=== PATIENT | male | born 2005 | race Caucasian/White ===

== ENCOUNTER 2024-09-08 18:59 | Emergency (ER) | payer MEDICAID, SELFPAY ==
[2024-09-08 19:00] VITALS: BMI 41.8
[2024-09-08 19:54] VITALS: BP 151/84; PULSE 71; RESP 18; TEMP 37.1; O2SAT 98
--- NOTE | 2024-09-08 20:01 | PD.EDSKIN ---
ED Skin Abcess FB-RME/HPI General Chief complaint: Skin/Abscess/Foreign Body Stated complaint: POSSIBLE ABSCESS TO TAILBONE AREA Time Seen by Provider: 09/08/24 19:52 Arrival date/time: 09/08/24 18:59 RME / HPI RME / HPI narrative: 19-year-old male presents with complaint of cyst to his tailbone area. Patient states it has been intermittent for several years. He recently had an increase in swelling and discomfort with spontaneous drainage from the area. He went to primary care and they prescribed him penicillin, which has not given him much relief or improvement. No fevers. Related Data Previous Rx's ?Medication ?Instructions ?Recorded acetaminophen 650 mg 650 mg PO Q8H PRN fever or pain 06/09/19 tablet,extended release #30 tabs ibuprofen 600 mg tablet 600 mg PO Q8H PRN fever or pain 06/09/19 #30 tabs prednisone 20 mg tablet See Rx Instructions PO QAM #9 tabs 06/09/19 ibuprofen 800 mg tablet 800 mg PO TID PRN pain #30 tabs 11/14/20 pantoprazole 40 mg tablet,delayed 40 mg PO QDAY #14 tabs 03/09/23 release (Protonix) cephalexin 500 mg capsule 500 mg PO QID 7 days #28 caps 09/08/24 sulfamethoxazole 800 1 tab PO BID 7 days #14 tabs 09/08/24 mg-trimethoprim 160 mg tablet (Bactrim DS) Allergies Allergy/AdvReac Type Severity Reaction Status Date / Time No Known Allergies Allergy Verified 09/08/24 19:03 Review of Systems Review of Systems Narrative Review of Systems: Review of systems negative except as outlined in the HPI. ED Exam Narrative Physical exam: Constitutional: no acute distress, age appropriate, non-toxic Eyes: conjunctivae w/o pallor, EOMI HENT: normocephalic, atraumatic. Respiratory Effort: no stridor, effort normal, no tachypnea Skin: warm, dry; at the superior gluteal cleft there is a pilonidal abscess that is spontaneously draining small amount of purulent discharge. No persistent fluctuance Neurology: alert, oriented X 4. Normal gait Psychology: cooperative, normal mood Course Quality Measures none Vital Signs Vital signs: Vital Signs Temperature 98.7 F 09/08/24 19:54 Pulse Rate 71 09/08/24 19:54 Respiratory Rate 18 09/08/24 19:54 Blood Pressure 151/84 H 09/08/24 19:54 Pulse Oximetry (%) 98 09/08/24 19:54 Oxygen Delivery Method Room Air 09/08/24 19:54 Skin / Abscess / Foreign Body MDM Narrative MDM Narrative:: Patient presented with pilonidal abscess. On exam, his abscess is draining. He is on penicillin, but very likely require broader coverage, so I will prescribe Keflex and Bactrim. He is to follow-up with primary care in the next 3 to 5 days to be referred to general surgery. Counseled him to do twice daily warm compresses and take OTC ibuprofen and Tylenol as needed for pain. Return to ED precautions given Patient data External records reviewed:: [facility] previous records Clinical information provided by:: patient Social determinants that could affect healthcare access:: none Patient has the following chronic illnesses:: None How is presenting disease/condition affected by chronic disease/condition?: no chronic disease Evaluation data The following diagnostics were reviewed and interpreted by me:: other (specify) (N/A) Lab and/or radiology exams considered but not ordered:: Considered labs and imaging but not indicated. Interpretation Summary: N/A Medications / Prescriptions Medications or Prescriptions considered but not ordered:: N/A Medication administrations:: N/A Consultations Consultation(s) initiated? (list below): No Diagnosis Skin/Abscess Differential Diagnosis: abscess of skin or subcutaneous tissue, urticaria, cellulitis and contact dermatitis Most likely diagnosis given after review of the tests above:: Pilonidal abscess Admission Indicated Admission indicated?: not indicated Explain why admission is indicated or not indicated:: Patient is stable for outpatient management Admission Request Was there a request for admission?: No Disposition Plan Disposition Plan: Discharge Discharge Attestation Discharge Attestation: The patient and all family members were given an opportunity to ask questions and understood the discharge instructions. Discharge instructions specifically effects, indications for sooner follow up or return to the emergency department, and the expected course of current diagnosis. Patient condition: Stable Discharge Plan Plan Patient Disposition: HOME (Self Care) Prescriptions/Referrals Prescriptions/Med Rec: New sulfamethoxazole-trimethoprim [Bactrim DS] 800-160 mg tablet 1 tab PO BID 7 Days Qty: 14 0RF cephalexin 500 mg capsule 500 mg PO QID 7 Days Qty: 28 0RF No Action acetaminophen 650 mg tablet extended release 650 mg PO Q8H PRN (Reason: fever or pain) Qty: 30 0RF Rx Instructions: swallow whole; do not crush, chew, break, dissolve, cut, or open ibuprofen 600 mg tablet 600 mg PO Q8H PRN (Reason: fever or pain) Qty: 30 0RF Rx Instructions: prn pain / fever prednisone 20 mg tablet See Rx Instructions PO QAM Qty: 9 0RF Rx Instructions: PO QAM; Take 40mg (2 tabs) PO QAM x 3 days, then 20mg (1 tab) PO QAM x 3 days ibuprofen 800 mg tablet 800 mg PO TID PRN (Reason: pain) Qty: 30 0RF pantoprazole [Protonix] 40 mg tablet,delayed release (DR/EC) 40 mg PO QDAY Qty: 14 0RF Problem List Clinical Impression: Pilonidal abscess Patient/Caregiver Discharge Instructions Education Materials: ED Cyst Pilonidal Infec Abx Only Additional Instructions: Follow-up with your PCP in the next 3 to 5 days for referral to general surgery. Take medications as prescribed. Apply warm compresses twice a day for 10 to 15 minutes at a time. Return to the ED for any new or worsening symptoms. Print Language: [place] Island[place] Stand Alone Forms: [employer] Award Info., Patient Portal Info Letter
== END 2024-09-08 20:29 | disposition home or self-care (01) ==
LOC: SERX 20:18
PROVIDERS: Emergency Provider Emergency Medicine; PCP Obstetrics & Gynecology
DX: L05.01 Pilonidal cyst with abscess (principal)
CPT/HCPCS: 99281

== ENCOUNTER 2025-02-06 20:00 | Emergency (ER) | payer MEDICAID, SELFPAY ==
[2025-02-06 20:02] VITALS: BMI 44.6
[2025-02-06 21:23] VITALS: BP 121/69; PULSE 107; RESP 18; TEMP 39.2; O2SAT 96
--- NOTE | 2025-02-06 21:31 | EDNOTE_ITS ---
Upper Respiratory Inf. RME/HPI General Chief Complaint: Flu Like Symptoms Stated Complaint: HEADACHE, BODYACHES, FEVER,COUGH Time Seen by Provider: 02/06/25 21:24 Arrival date/time: 02/06/25 20:00 RME / HPI RME / HPI Narrative: 19-year-old male presents to the ED with a 9-day history of fever, cough, runny nose, nasal congestion, sore throat, body aches, headache, nausea and vomiting (none today), and 1 bout of diarrhea today. Related Data Previous Rx's ?Medication ?Instructions ?Recorded acetaminophen 650 mg 650 mg PO Q8H PRN fever or p ain 06/09/19 tablet,extended release #30 tabs ibuprofen 600 mg tablet 600 mg PO Q8H PRN fever or p ain 06/09/19 #30 tabs prednisone 20 mg tablet See Rx Instructions PO QAM # 9 tabs 06/09/19 ibuprofen 800 mg tablet 800 mg PO TID PRN pain #30 t abs 11/14/20 pantoprazole 40 mg tablet,delayed 40 mg PO QDAY #14 ta bs 03/09/23 release (Protonix) Allergies Allergy/AdvReac Type Severity Reaction Status Date / Time No Known Allergies Allergy Verified 02/06/25 20:01 Review of Systems Review of Systems Systems Reviewed: All systems reviewed, normal except as documented Past Medical History Past Medical History CARDIAC: Negative Cardiac Disorders or Congestive Heart Failure RESPIRATORY: Negative Chronic Obstructive Pulmonary Disease (COPD) or Asthma GENITOURINARY: Negative Renal Disease ENDOCRINE: Negative Diabetes Mellitus Type 1 or Diabetes Mellitus Type 2 HEMATOLOGIC: Negative Sickle Cell Disease Family History FAMILY HISTORY: Positive Family Gastrointestinal Problems Social History SMOKING STATUS: Never smoker ED Exam Narrative Physical exam: Alert and oriented, febrile at 102.6, 19-year-old male, no acute distress. Lungs are clear, mild tachycardia at 107. Abdomen is soft and nontender. Moves all extremities well. TMs and pharynx without erythema, nares pale and boggy, no maxillary sinus tenderness. Neck is supple, normal range of motion, no adenopathy noted. Course Course Course Narrative: COVID, influenza A/B and rapid strep ordered and pending. Quality Measures none Orders Category Date Time Status Bedside COVID-19 Antigen Test NOW Care 02/06/25 20:44 Active Bedside Influenza A&B Antigen Test NOW Care 02/06/25 20:44 Completed XR chest 2V Stat Exams 02/06/25 22:23 Taken Strep A Rapid Stat Lab 02/06/25 21:41 Completed Acetaminophen Tab [Tylenol ES Tab] Med 02/06/25 21:36 Discontinued 1,000 mg PO X1 ONE Ibuprofen Tab [Motrin Tab] Med 02/06/25 21:51 Discontinued 800 mg PO X1 ONE Vital Signs Vital signs: Vital Signs Temperature 102.6 F H 02/06/25 21:23 Pulse Rate 107 H 02/06/25 21:23 Respiratory Rate 18 02/06/25 21:23 Blood Pressure 121/69 02/06/25 21:23 Pulse Oximetry (%) 96 02/06/25 21:23 Oxygen Delivery Method Room Air 02/06/25 21:23 Upper Respiratory Infection Medications / Prescriptions Medication administrations:: Medication Administration History Discontinued Medications Acetaminophen (Acetaminophen 500 Mg Tablet) 1,000 mg PO X1 ONE Stop: 02/06/25 21:37 Last Admin: 02/06/25 21:52 Dose: Not Given Documented By: Non-Admin Reason: Cancelled by Provider Ibuprofen (Ibuprofen Tab 400 Mg Tablet) 800 mg PO X1 ONE Stop: 02/06/25 21:52 Last Admin: 02/06/25 22:00 Dose: 800 mg Documented By: Discharge Plan Prescriptions/Referrals Prescriptions/Med Rec: No Action acetaminophen 650 mg tablet extended release 650 mg PO Q8H PRN (Reason: fever or pain) Qty: 30 0RF Rx Instructions: swallow whole; do not crush, chew, break, dissolve, cut, or open ibuprofen 600 mg tablet 600 mg PO Q8H PRN (Reason: fever or pain) Qty: 30 0RF Rx Instructions: prn pain / fever prednisone 20 mg tablet See Rx Instructions PO QAM Qty: 9 0RF Rx Instructions: PO QAM; Take 40mg (2 tabs) PO QAM x 3 days, then 20mg (1 tab) PO QAM x 3 days ibuprofen 800 mg tablet 800 mg PO TID PRN (Reason: pain) Qty: 30 0RF pantoprazole [Protonix] 40 mg tablet,delayed release (DR/EC) 40 mg PO QDAY Qty: 14 0RF Referrals: Jackie Carrera NP [Primary Care Provider] - In 1 week Patient/Caregiver Discharge Instructions Print Language: Slovenian
--- NOTE | 2025-02-06 21:52 | PC.NURSE ---
PAtient stated he took Tylenol arthritis at 1900 at home equally 1300mg in Tylenol. Provider notified, new order for IBU 800mg POx1 now. Pharmacy aware.
[2025-02-06 22:00] VITALS: TEMP 39.2
[2025-02-06] MEDS: IBUPROFEN TAB 400 MG TABLET 800 MG PO (22:00)
--- NOTE | 2025-02-06 22:23 | XR_ITS ---
Examination: PA lateral chest 2 views TECHNIQUE: Upright PA and lateral chest 2 views Date and time: February 06, 2025 1119 hours INDICATIONS: Coughing fever chest pain beginning 9 days ago. FINDINGS: On the lateral view pneumonia in the posterior basal segment obscuring detail posterior portion right hemidiaphragm Normal heart size The osseous structures are intact IMPRESSION: Pneumonia posterior basal segment right lower lobe
[2025-02-06 22:57] LABS: Strep A Rapid Negative (Negative)
[2025-02-06 23:59] VITALS: TEMP 37.2
[2025-02-07] MEDS: SODIUM CHLORIDE 0.9% 1000 ML 1,000 ML 999 ML IV (00:09)
[2025-02-07 00:20] VITALS: BP 128/83; PULSE 77; RESP 12; TEMP 37.2; O2SAT 97
[2025-02-07 00:37] LABS: Lactate (Lactic Acid) 0.9 mMol/L (0.4-2.0)
[2025-02-07 00:39] LABS: Basophils # (Auto) 0.0 Thou/mm3 (0.0-0.2); Basophils % (Auto) 0 % (0-2.5); Eosinophils # (Auto) 0.0 Thou/mm3 (0.0-0.5); Eosinophils % (Auto) 0 % (0-10); Hematocrit 41.2 % (41.0-53.0); Hemoglobin 14.2 g/dL (13.5-16.0); Immature Granulocytes Auto 0.02 Thou/mm3 (0.00-0.00); Lymphocytes # (Auto) 1.5 Thou/mm3 (1.0-4.8); Lymphocytes % (Auto) 20 % (10-50); Mean Corpuscular HGB Conc 34.5 g/dl (31.0-37.0); Mean Corpuscular Hemoglobin 29.2 pg (25.0-35.0); Mean Corpuscular Volume 85 fL (80-100); Monocytes # (Auto) 0.5 Thou/mm3 (0.0-0.8); Monocytes % (Auto) 7 % (0-12); Neutrophils # (Auto) 5.3 Thou/mm3 (1.8-7.7); Neutrophils % (Auto) 72 % (37-80); Nucleated Red Blood Cell # 0.00 Thou/mm3 (0.00-0.00); Nucleated Red Blood Cell % 0 /100 WBC (0); Platelet Count 202 Thou/mm3 (140-440); RDW Standard Deviation 40.2 fL (35.1-43.9); Red Blood Count 4.86 Miln/mm3 (4.50-5.90); White Blood Count 7.3 Thou/mm3 (4.5-11.0)
[2025-02-07] MEDS: cefTRIAXone/D5w 1gm IV premix 1 GM/50 ML BAG IV (00:40)
[2025-02-07 01:04] LABS: B-Type Natriuretic Peptide < 20 pg/mL (0-100)
[2025-02-07 01:07] LABS: Alanine Aminotransferase 43 U/L (10-49); Albumin, Serum 5.1 gm/dL (3.5-5.0); Albumin/Globulin Ratio 1.8 (1.2-2.2); Alkaline Phosphatase 70 U/L (46-116); Anion Gap 12 (7-16); Aspartate Amino Transferase 77 U/L (0-34); BUN/Creatinine Ratio 8 Ratio (12-20); Bilirubin,Total 0.6 mg/dL (0.3-1.2); Blood Urea Nitrogen 10 mg/dL (9-23); Calcium 9.3 mg/dL (8.3-10.6); Calcium (Corrected) 9.3 mg/dL (8.5-10.1); Carbon Dioxide 26.0 mMol/L (20.0-31.0); Chloride 102 mMol/L (98-107); Creatinine (Component) 1.3 mg/dL (0.6-1.3); Estimated Creatinine Clearance 132.4 mL/min (>60); Globulin 2.9 gm/dL (2.3-3.5); Glucose 93 mg/dL (74-106); Magnesium 2.1 mg/dL (1.6-2.6); Osmolality,Calculated 278 (275-295); Potassium 3.9 mMol/L (3.4-5.1); Procalcitonin 0.10 ng/ml (0.0-0.49); Sodium 140 mMol/L (136-145); Total Protein 8.0 gm/dL (5.7-8.2); eGFR > 60 See Note
--- NOTE | 2025-02-07 01:58 | EDNOTE_ITS ---
Upper Respiratory Inf. RME/HPI General Chief Complaint: Flu Like Symptoms Stated Complaint: HEADACHE, BODYACHES, FEVER,COUGH Time Seen by Provider: 02/06/25 21:24 Arrival date/time: 02/06/25 20:00 RME / HPI RME / HPI Narrative: 19-year-old male presents to the ED with a 9-day history of fever, cough, runny nose, nasal congestion, sore throat, body aches, headache, nausea and vomiting (none today), and [address] bout of diarrhea today[address] DR. LYNN MAIN ED EVALUATION: 19 y/o male presents to ED c/o cough, fever, body aches, and lightheadedness x 9 days. Denies Hx of Asthma. Related Data Previous Rx's ?Medication ?Instructions ?Recorded acetaminophen 650 mg 650 mg PO Q8H PRN fever or p ain 06/09/19 tablet,extended release #30 tabs ibuprofen 600 mg tablet 600 mg PO Q8H PRN fever or p ain 06/09/19 #30 tabs prednisone 20 mg tablet See Rx Instructions PO QAM # 9 tabs 06/09/19 ibuprofen 800 mg tablet 800 mg PO TID PRN pain #30 t abs 11/14/20 pantoprazole 40 mg tablet,delayed 40 mg PO QDAY #14 ta bs 03/09/23 release (Protonix) azithromycin 250 mg tablet 250 mg PO QDAY 4 days #4 ta bs 02/07/25 Allergies Allergy/AdvReac Type Severity Reaction Status Date / Time No Known Allergies Allergy Verified 02/06/25 20:01 Review of Systems Review of Systems Systems Reviewed: All systems reviewed, normal except as documented Past Medical History Family History FAMILY HISTORY: Positive Family Gastrointestinal Problems ED Exam Narrative Physical exam: GENERAL APPEARANCE: alert and oriented x 4, well-developed, well-nourished, no acute distress VITALS: All vitals were reviewed and the pulse ox is 94% on room air, which is normal according to my interpretation. HEENT: Normocephalic, atraumatic; pupils equal, round, reactive to light; EOMI; mucous membranes pink, moist; oropharynx clear NECK: Supple LUNGS: CTABL; very mild left-sided wheezes, no rales, no rhonchi HEART: Regular rate, regular rhythm; normal S1, S2; no murmurs ABDOMEN: non distended; normal BS; soft, no tenderness, no guarding, no rebound; no masses, no organomegaly, no hernia BACK: no CVA tenderness EXTREMITIES: atraumatic; no edema NEUROLOGIC: awake; alert and oriented x4; cranial nerves II-XII grossly intact; no focal sensory or motor deficits PSYCHIATRIC: appropriate mood and affect SKIN: warm, dry, normal color; no rashes Course Course Course Narrative: COVID, influenza A/B and rapid strep ordered and pending. CXR is ordered for determining the etiology of shortness of breath. Quality Measures none Orders Category Date Time Status Bedside COVID-19 Antigen Test NOW Care 02/06/25 20:44 Active Bedside Influenza A&B Antigen Test NOW Care 02/06/25 20:44 Completed Household Personal Assistant NOW Care 02/06/25 23:37 Active EKG (ED ONLY) *Do not use* NOW Care 02/06/25 23:37 Completed EKG (ED Only) Stat Exams 02/06/25 23:37 Ordered XR chest 2V Stat Exams 02/06/25 22:23 Completed B-Type Natriuretic Peptide Stat Lab 02/06/25 11:59 Completed Blood Culture (Lab) Stat Lab 02/06/25 11:59 Received CBC Stat Lab 02/06/25 11:59 Completed Comprehensive Metabolic Panel Stat Lab 02/06/25 11:59 Completed Lactate (Lactic Acid) Stat Lab 02/06/25 11:59 Completed Magnesium Stat Lab 02/06/25 11:59 Completed Procalcitonin Stat Lab 02/06/25 11:59 Completed Strep A Rapid Stat Lab 02/06/25 21:41 Completed Urinalysis Stat Lab 02/06/25 23:37 Ordered Urine Culture Stat Lab 02/06/25 23:37 Ordered Acetaminophen Tab [Tylenol ES Tab] Med 02/06/25 21:36 Discontinued 1,000 mg PO X1 ONE Azithromycin Po [Zithromax PO] Med 02/07/25 01:55 Discontinued 500 mg PO X1 ONE Dexamethasone Inj [Decadron Inj] Med 02/07/25 01:55 Once 4 mg IVP X1 ONE Ibuprofen Tab [Motrin Tab] Med 02/06/25 21:51 Discontinued 800 mg PO X1 ONE Sodium Chloride 0.9% 1000 ml [Ns] 1,000 ml Med 02/06/25 23:37 Discontinued IV 999 mls/hr cefTRIAXone/D5w 1gm IV premix [Rocephin/D5w 1gm IV Med 02/06/25 23:37 Discontinued premix] 1 gm in 50 ml IV X1 Vital Signs Vital signs: Vital Signs Temperature 102.6 F H 02/06/25 21:23 Pulse Rate 107 H 02/06/25 21:23 Respiratory Rate 18 02/06/25 21:23 Blood Pressure 121/69 02/06/25 21:23 Pulse Oximetry (%) 96 02/06/25 21:23 Oxygen Delivery Method Room Air 02/06/25 21:23 Upper Respiratory Infection MDM Narrative MDM Narrative:: Scribe Attestation: Felisha Thompson, am scribing for and in the presence of Dr. Lynn. Provider Notation: Although this document has been carefully reviewed, there may still be some phonetic and other typographical errors.? These errors are purely grammatical due to imperfections in the software program and should not be construed in any way to? compromise the substance of the patient's medical care during this visit. Patient data External records reviewed:: [facility] previous records (Reviewed prior ED records from 09/08/24. Patient was seen for Pilonidal abscess.) Clinical information provided by:: patient Social determinants that could affect healthcare access:: none Patient has the following chronic illnesses:: None reported How is presenting disease/condition affected by chronic disease/condition?: no chronic disease Evaluation data The following diagnostics were reviewed and interpreted by me:: lab results and radiology exam(s) Lab and/or radiology exams considered but not ordered:: None Interpretation Summary: RADIOLOGY Chest X-Ray: FINDINGS: On the lateral view pneumonia in the posterior basal segment obscuring detail posterior portion right hemidiaphragm Normal heart size The osseous structures are intact IMPRESSION: Pneumonia posterior basal segment right lower lobe Medications / Prescriptions Medications or Prescriptions considered but not ordered:: None Medication administrations:: Medication Administration History Dexamethasone Sodium Phosphate (Dexamethasone Sod Phos Inj 4 Mg/Ml Vial) 4 mg IVP X1 ONE; Protocol Stop: 02/07/25 01:56 Discontinued Medications Acetaminophen (Acetaminophen 500 Mg Tablet) 1,000 mg PO X1 ONE Stop: 02/06/25 21:37 Last Admin: 02/06/25 21:52 Dose: Not Given Documented By: Non-Admin Reason: Cancelled by Provider Azithromycin (Azithromycin 250 Mg Tablet) 500 mg PO X1 ONE Stop: 02/07/25 01:56 Sodium Chloride (Ns) 1,000 mls @ 999 mls/hr IV .Q1H1M ONE Stop: 02/07/25 00:37 Last Infusion: 02/07/25 01:25 Dose: Infused Documented By: Admin: 02/07/25 00:09 Dose: 999 mls/hr Documented By: ANIKA Ceftriaxone Sodium/Dextrose (Rocephin/D5w 1gm Iv Premix) 1 gm in 50 mls @ 100 mls/hr IV X1 ONE Stop: 02/07/25 00:06 Last Infusion: 02/07/25 01:24 Dose: Infused Documented By: Admin: 02/07/25 00:40 Dose: 100 mls/hr Documented By: ANIKA Ibuprofen (Ibuprofen Tab 400 Mg Tablet) 800 mg PO X1 ONE Stop: 02/06/25 21:52 Last Admin: 02/06/25 22:00 Dose: 800 mg Documented By: See above if any Consultations Consultation(s) initiated? (list below): No Diagnosis Upper Respiratory Differential Diagnosis: upper respiratory infection, viral infection, bronchitis and influenza Most likely diagnosis given after review of the tests above:: Pneumonia Admission Indicated Admission indicated?: not indicated Explain why admission is indicated or not indicated:: Patient does not meet admission criteria Admission Request Was there a request for admission?: No Disposition Plan Disposition Plan: Discharge Discharge Attestation Discharge Attestation: The patient and all family members were given an opportunity to ask questions and understood the discharge instructions. Discharge instructions specifically effects, indications for sooner follow up or return to the emergency department, and the expected course of current diagnosis. Patient condition: Stable Discharge Plan Plan Patient Disposition: HOME (Self Care) Prescriptions/Referrals Prescriptions/Med Rec: New azithromycin 250 mg tablet 250 mg PO QDAY 4 Days Qty: 4 0RF Rx Instructions: start on day 2 of therapy No Action acetaminophen 650 mg tablet extended release 650 mg PO Q8H PRN (Reason: fever or pain) Qty: 30 0RF Rx Instructions: swallow whole; do not crush, chew, break, dissolve, cut, or open ibuprofen 600 mg tablet 600 mg PO Q8H PRN (Reason: fever or pain) Qty: 30 0RF Rx Instructions: prn pain / fever prednisone 20 mg tablet See Rx Instructions PO QAM Qty: 9 0RF Rx Instructions: PO QAM; Take 40mg (2 tabs) PO QAM x 3 days, then 20mg (1 tab) PO QAM x 3 days ibuprofen 800 mg tablet 800 mg PO TID PRN (Reason: pain) Qty: 30 0RF pantoprazole [Protonix] 40 mg tablet,delayed release (DR/EC) 40 mg PO QDAY Qty: 14 0RF Referrals: Jackie Carrera, [employer] [Primary Care Provider] - In 1 week Problem List Clinical Impression: Pneumonia Patient/Caregiver Discharge Instructions Education Materials: ED Pneumonia (Adult) Print Language: [place] Stand Alone Forms: [employer] Award Info., Patient Portal Info Letter
[2025-02-07 02:02] LABS: Collection Type, Urine Clean Catch
[2025-02-07] MEDS: AZITHROMYCIN 250 MG TABLET 500 MG PO (02:04)
[2025-02-07] MEDS: DEXAMETHASONE SOD PHOS INJ 4 MG/ML VIAL IVP (02:04)
[2025-02-07 02:06] LABS: Bilirubin,Urine Negative (Negative); Blood,Urine Negative (Negative); Clarity,Urine Clear (Clear/Hazy); Color,Urine Yellow (Lt Yel-Yel); Glucose, Urine Negative (Negative); Ketones,Urine Trace (Negative); Leukocyte Esterase,Urine Positive (Negative); Nitrite,Urine Negative (Negative); PH,Urine 6.0 (5.0-7.0); Protein,Urine Trace (Neg - Trace); RBC,Urine 7 /hpf (0-3); Specific Gravity,Urine 1.027 (1.001-1.035); Squamous Epithelial Cell,Urine < 1 /hpf (0-5); Urobilinogen,Urine Negative mg/dL (0.0-1.0); WBC,Urine 35 /hpf (0-5)
[2025-02-07 02:08] VITALS: BP 137/75; PULSE 77; RESP 15; TEMP 36.9; O2SAT 99
== END 2025-02-07 02:11 | disposition home or self-care (01) ==
PROVIDERS: Physician Assistant; Emergency Provider Emergency Medicine; PCP Nurse Practitioner Family
DX: J18.9 Pneumonia, unspecified organism (principal)
CPT/HCPCS: 36415; 71046; 80053; 81001; 83605; 83735; 83880; 84145; 85025; 87040; 87086; 87400; 87651; 87811; 93005; 96361; 96365; 96375; 99283; J0696; J1100; J7030; A9270

== ENCOUNTER 2025-05-11 06:00 | Day surgery (SDC) | payer MEDICAID, SELFPAY ==
[2025-05-10 09:58] VITALS: BMI 47.2
[2025-05-10 11:12] LABS: INR 1.0 (0.9-1.3); Partial Thromboplastin Time 36.9 Seconds (22.0-36.0); Prothrombin Time 10.3 Seconds (9.0-12.2)
[2025-05-10 11:15] LABS: Basophils # (Auto) 0.0 Thou/mm3 (0.0-0.2); Basophils % (Auto) 1 % (0-2.5); Eosinophils # (Auto) 0.2 Thou/mm3 (0.0-0.5); Eosinophils % (Auto) 3 % (0-10); Hematocrit 42.0 % (41.0-53.0); Hemoglobin 14.2 g/dL (13.5-16.0); Immature Granulocytes Auto 0.02 Thou/mm3 (0.00-0.00); Lymphocytes # (Auto) 1.8 Thou/mm3 (1.0-4.8); Lymphocytes % (Auto) 25 % (10-50); Mean Corpuscular HGB Conc 33.8 g/dl (31.0-37.0); Mean Corpuscular Hemoglobin 28.6 pg (25.0-35.0); Mean Corpuscular Volume 85 fL (80-100); Monocytes # (Auto) 0.4 Thou/mm3 (0.0-0.8); Monocytes % (Auto) 5 % (0-12); Neutrophils # (Auto) 4.9 Thou/mm3 (1.8-7.7); Neutrophils % (Auto) 67 % (37-80); Nucleated Red Blood Cell # 0.00 Thou/mm3 (0.00-0.00); Nucleated Red Blood Cell % 0 /100 WBC (0); Platelet Count 217 Thou/mm3 (140-440); RDW Standard Deviation 42.9 fL (35.1-43.9); Red Blood Count 4.96 Miln/mm3 (4.50-5.90); White Blood Count 7.3 Thou/mm3 (3.8-10.6)
[2025-05-10 11:17] LABS: Alanine Aminotransferase 28 U/L (10-49); Albumin, Serum 4.5 gm/dL (3.5-5.0); Albumin/Globulin Ratio 2.0 (1.2-2.2); Alkaline Phosphatase 82 U/L (46-116); Anion Gap 12 (7-16); Aspartate Amino Transferase 27 U/L (0-34); BUN/Creatinine Ratio 13 Ratio (12-20); Bilirubin,Total 0.2 mg/dL (0.3-1.2); Blood Urea Nitrogen 10 mg/dL (9-23); Calcium 9.3 mg/dL (8.3-10.6); Calcium (Corrected) 9.3 mg/dL (8.5-10.1); Carbon Dioxide 26.3 mMol/L (20.0-31.0); Chloride 105 mMol/L (98-107); Creatinine (Component) 0.8 mg/dL (0.6-1.3); Estimated Creatinine Clearance 220.5 mL/min (>60); Globulin 2.2 gm/dL (2.3-3.5); Glucose 111 mg/dL (74-106); Osmolality,Calculated 284 (275-295); Potassium 3.9 mMol/L (3.4-5.1); Sodium 143 mMol/L (136-145); Total Protein 6.7 gm/dL (5.7-8.2); eGFR > 60 See Note
--- NOTE | 2025-05-10 15:19 | SUR.PREOP ---
Pt notified to come in at 0700 tomorrow.
[2025-05-11] VITALS (7 sets, daily range): BP systolic 129–161; BP diastolic 57–95; PULSE 78–98; RESP 12–18; TEMP 36.2–36.8; O2SAT 97–100; BMI 48.4
[2025-05-11] MEDS: RINGERS LACTATED 1000 ML 1,000 ML 20 ML IV (06:41)
--- NOTE | 2025-05-11 07:20 | CHAP ---
Visited briefly with patient and gave encouragement and prayer.
--- NOTE | 2025-05-11 09:05 | SUR.PHASEI ---
pt received from OR in recovery bay 5. pt asleep but responds to voice, breathing unlabored on room air. v/s stable. pt dressing to lower back cdi. report received from Dr. Tracey and Kim COLLINS.
--- NOTE | 2025-05-11 09:15 | SUR.PHASEI ---
pt able to tolerate oral fluids without difficulty swallowing or nausea/vomiting.
--- NOTE | 2025-05-11 09:24 | PD.SUROPNT ---
Date of Procedure 05/11/25 Pre Op Diagnosis Chronic pilonidal cyst with abscess Post Op Diagnosis Same Procedure Wide excision and primary closure of the complicated pilonidal cyst Findings Patient was found to have an abscess at the top of the juan carlos cleft and then 2 other sinuses in the juan carlos cleft Procedure Description After the patient was brought to the operating room endotracheal anesthesia was given. Patient was then placed on prone position and buttocks were taped apart. 2 g of Ancef was given because of the infection in the sinus. Timeout was performed. Then an elliptical incision was made over the juan carlos cleft containing this abscess as well as the sinuses. They were probed with lacrimal probe and it went all the way down to the presacral fascia. Wide excision was carried out with an elliptical incision the bleeding points were controlled with cautery. The tissues were approximated with a 2 and 3-0 chromic sutures. Then injected large amounts of half percent Marcaine for analgesia and the skin was closed with interrupted 3-0 nylon stitches. Dressing was applied with Adaptic and 4 x 4 gauze with compression. Patient tolerated procedure well. Anesthesia GETA Pathology / specimen Other IVF Infused 800 Estimated Blood Loss 100 Surgeon Romana Arevalo MD Surgical Staff Operation Date: 05/11/25 07:30 Case Staff Anesthesiologist: Patrick Tracey RN First Assistant: Su Mayes
--- NOTE | 2025-05-11 09:55 | SUR.PHASEII ---
pt awake and alert, breathing unlabored on room air. v/s stable. pt dressing to lower back cdi. pt able to ambualte to wheelchair with steady gait. d/c instructions given with s/o Veronica in room, all questions answered. pt d/c via wheelchair with all belongings.
== END 2025-05-11 09:55 | disposition home or self-care (01) ==
PROVIDERS: PCP Obstetrics & Gynecology; Referring Provider Surgery; Visit Provider Surgery
PROC: (CPT 11772; principal; 2025-05-11 07:30)
DX: L05.01 Pilonidal cyst with abscess (principal); E66.01 Morbid (severe) obesity due to excess calories; Z68.42 Body mass index [BMI] 45.0-49.9, adult
CPT/HCPCS: 11772; 36415; 80053; 85025; 85610; 85730; A4217; A4649; J0131; J0461; J1100; J1885; J2250; J2371; J2405; J2704; J3010; J3490; J7120; A9270